=== PATIENT | female | born 1975 | race American Indian/Alaskan Native ===

== ENCOUNTER 2016-07-18 09:38 | Day surgery (SDC) | payer MEDICAID ==
[2016-07-17 11:41] LABS: Basophils % (Auto) 0.9 % (0.0-1.8); Eosinophils % (Auto) 0.2 % (0.0-4.3); Hematocrit 38.9 % (30.3-42.9); Hemoglobin 12.3 gm/dl (10.1-14.3); Mean Corpuscular HGB Conc 32 % (30-34); Mean Corpuscular Hemoglobin 24 pg (28-32); Mean Corpuscular Volume 76 fl (79-97); Platelet Count 290 K/mm3 (140-440); Red Cell Distribution Width 17.6 % (13.2-15.2); White Blood Count 3.3 K/mm3 (4.5-11.0)
[2016-07-17 11:54] LABS: Alanine Aminotransferase 30 units/L (7-56); Alkaline Phosphatase 93 units/L (35-129); Anion Gap 17 mmol/L; BUN/Creatinine Ratio 18.57; Bilirubin,Total 0.4 mg/dL (0.1-1.2); Blood Urea Nitrogen 13 mg/dL (7-17); Calcium 9.3 mg/dL (8.4-10.2); Carbon Dioxide 24 mmol/L (22-30); Chloride 102.1 mmol/L (98-107); Glucose 95 mg/dL (65-100); Potassium 4.3 mmol/L (3.6-5.0); Sodium 139 mmol/L (137-145); Total Protein 8.1 g/dL (6.3-8.2)
--- NOTE | 2016-07-17 12:01 | Anesthesia Consultation ---
Anesthesia Consult and Med Hx Date of service: 07/17/16 - Airway Anesthetic Teeth Evaluation: Good ROM Head & Neck: Adequate Mental/Hyoid Distance: Adequate Mallampati Class: Class II Intubation Access Assessment: Probably Good - Pre-Operative Health Status ASA Pre-Surgery Classification: ASA3 Proposed Anesthetic Plan: General - Pre-Anesthesia Comment Pre-Anesthesia Comments: HIV positive - Cardiovascular System Hx Hypertension: Yes (FOR 5 YRS) - Central Nervous System Hx Psychiatric Problems: No - Gastrointestinal Hx Gastroesophageal Reflux Disease: Yes - Other Systems Hx Cancer: No Hx Obesity: Yes
--- NOTE | 2016-07-18 06:32 | Admit Criteria Form ---
Admission Criteria Documentation: AMBULATORY SURGERY EXCEPTION CRITERIA Ambulatory Surgery Exception Criteria ( Place 'X' for any and all applicable criteria): Surgery or procedure performed on ambulatory basis may require inpatient stay for[A] ANY ONE of the following(1)(2)(3)(4)(5)(6)(7)(8)(9): [X] I. A preoperative situation, condition, or finding that warrants inpatient stay as indicated by ANY ONE of the following: [] a) Inpatient care needed because of severity of a disease or condition rather than the surgery (eg, severe cardiac or respiratory disease, severe infection) (15) (16 ) (17) (18) [] b) Emergent procedure (eg, angioplasty for acute ischemia)(19) [] c) Complex surgical approach or situation as indicated by ANY ONE of the following(3): [] i) Open approach needed instead of usual endoscopic, transcatheter, or other less invasive procedure [] ii) Difficult approach because of previous operation [] iii) Airway monitoring required after open neck procedures(20)(21) [] iv) Large mass requiring unusually extensive dissection [] v) Additional complicating feature requiring inpatient care (eg, drain management)(22(23): [X] d) Major surgery in a pt with high anesthetic risk as indicated by ANY ONE of the following (2)(3)(5)(7)(8): [X] i) ASA risk class III or higher (severe systemic disease impairing function) [D] [] ii) Advanced age (eg, older than 85 years)(14)(24) [] iii) Symptomatic heart failure(25) [] iv) Symptomatic asthma or COPD(8)(21) [] v) Morbid obesity with hemodynamic or respiratory problems(20)( 21)(26)(27) [] vi) Obstructive sleep apnea(20)(21) [] vii) Former premature infants who are younger than 60 weeks [] viii) High risk for severe postoperative abnormalities (eg, severe postoperative hypocalcemia after parathyroidectomy for severe hyperparathyroidism)(27)( 28) [] ix) Unstable angina(25) [] e) Drug-related risk requiring inpatient stay as indicated by ANY ONE of the following(5)(10)(14)(32)(33) [] i) Procedure requires discontinuing drugs or other therapy (eg , antiarrhythmic medication, antiseizure medication), which necessitates inpatient observation or treatment.(18)(31) [] ii) Major surgery and high risk drug use as indicated by ANY ONE of the following: [] 1) Active abuse of cocaine or similar drug [] 2) Monoamine oxidase inhibitor use [] 3) Other drug identified as posing risk [] f) Inadequate outpatient care situation as indicated by ANY ONE of the following(5)(10)(14)(32)(33) [] i) Patient lives remote from medical facility and procedure has urgent complication potential, and temporary nearby residence cannot be arranged [] ii) Patient will have postprocedure incapacitation and inadequate assistance at home, or alternative level of care cannot be arranged. [] iii) Patient will have long general anesthesia or procedure side effect resolution time, and competent person to stay with patient on first postoperative night at home or alternative level of care cannot be arranged. []iv) Other inadequate outpatient situation that cannot be handled by other means [] II. A perioperative event, condition, or finding that warrants inpatient stay as indicated by ANY ONE of the following (1)(2)(3): [] a) Inadequate physiologic recovery: cardiovascular, respiratory, or hemodynamic status not normal or near preoperative baseline(18) [] b) Hemodynamic instability [] c) Patient not alert with near normal or baseline mental status [] d) Temperature not normal or as expected and not appropriate for outpatient treatment of condition [] e) Ambulatory or appropriate activity level status not yet achieved post procedure [E](34)(35)(36) [] f) Operative site not appropriate (eg, unexpected or excessive drainage or bleeding) [] g) Postoperative effects not resolved or adequately managed (eg, significant pain or vomiting not appropriate for outpatient or next level of care)(10)(12) [] h) Complicating features requiring inpatient care as indicated by ANY ONE of the following(37): [] i) Severe complications of procedure (eg, bowel injury, airway compromise, vascular injury,severe hemorrhage) [] ii) Extensive (eg, dissection far beyond usual scope of procedure ) or prolonged (eg, 120 minutes beyond usual) surgery needed requiring inpatient postoperative care [] iii) Conversion to an open or complex procedure that requires inpatient care (eg, open vs laparoscopic cholecystectomy, abdominal vs vaginal hysterectomy)(38) [] iv) Comorbid condition or test result identified during or post procedure that requires inpatient care (7) [] v) Malignant hyperthermia(30) [] vi) Other complicating feature requiring inpatient care(22)(23) Inpatient stay may be needed until ALL of the following are present (1)(2)(3)(4) (5)(6)(10)(14)(33)(40): []a) Physiologic recovery: cardiovascular, respiratory, and hemodynamic status normal or near preoperative baseline []b) Hemodynamic stability []c) Patient alert, with near normal or baseline mental status []d) Temperature appropriate: patient afebrile or temperature appropriate for outpt treatment of condition []e) Activity level appropriate: ambulatory or appropriate activity level post procedure []f) Operative site appropriate as indicated by ALL of the following: []i) Site dry or with expected drainage []ii) Any blood noted is as expected for procedure. []g) Postoperative effects resolved or managed as indicated by ALL of the following: []i) Pain management appropriate for outpatient (or next level of) care(10) []ii) Minimal nausea and vomiting: if present, successfully treated with oral medication(12) []iii) Headache, dizziness, or drowsiness (if present) are mild. []h) Voiding status acceptable as indicated by ANY ONE of the following: []i) Voiding spontaneously []ii) No voiding but instructions given for follow-up in 6 to 8 hours []iii) Urinary catheter in place, and instructions given for follow-up []i) Complicating features requiring inpatient care manageable at a lower level of care(37) []j) Comorbid conditions manageable at a lower level of care(37) The original [employer] content created by [employer] has been revised. The portions of the content which have been revised are identified through the use of italic text or in bold, and [facility] has neither reviewed nor approved the modified material. All other unmodified content is copyright [employer]. Please see references footnoted in the original [employer] edition 2016 Admission Criteria Met: Yes
[~2016-07-18 09:38] MED LIST: LACTATED RINGERS 1,000 ML IV SCH; PEPCID PO NR; TRANSDERM-SCOP TD NR; VERSED IV NR; ZOFRAN IV PRN
[2016-07-18] MEDS ORDERED: DIPRIVAN 10 MG/ML IV ONE (10:13)
[2016-07-18] MEDS ORDERED: ZEMURON IV ONE (10:14)
[2016-07-18] MEDS ORDERED: XYLOCAINE MPF 2% ONE (10:14)
[2016-07-18] MEDS ORDERED: DILAUDID ONE (10:15)
[2016-07-18] MEDS ORDERED: ANCEF/STERILE WATER 2 GM/20 ML IV NR (10:40)
[2016-07-18] MEDS ORDERED: DECADRON ONE (11:40)
[2016-07-18] MEDS ORDERED: MARCAINE 0.5% INFILTRATI ONE ×2 (11:59)
[2016-07-18] MEDS ORDERED: NACL 0.9% IR ONE (11:59)
[2016-07-18] MEDS ORDERED: ePHEDrine SULFATE ONE (12:01)
[2016-07-18] MEDS ORDERED: BLOXIVERZ ONE (12:11)
[2016-07-18] MEDS ORDERED: ROBINUL ONE (12:11)
[2016-07-18] MEDS ORDERED: ZOFRAN ONE (12:13)
[2016-07-18] MEDS ORDERED: NORCO 5/325 PO PRN ×2 (12:39→12:40)
--- NOTE | 2016-07-18 12:39 | Discharge Summary ---
Short Stay Discharge Plan Activity: advance as tolerated Diet: low fat Wound: remove dressing
[2016-07-18] MEDS: DILAUDID IV PRN ×4 (12:40→13:15)
--- NOTE | 2016-07-18 13:42 | Post Anesthesia Evaluation ---
- Post Anesthesia Evaluation Patient Participated: Yes Airway Patent: Yes Stable Respiratory Function: Yes Nausea/Vomiting: No Temp > 96.8F: Yes Pain Manageable: Yes Adequeate Hydration: Yes Anesthesia Complications: No Block Receding Appropriately: Not Applicable Patient on Ventilator: No
--- NOTE | 2016-07-18 13:42 | Operative Report ---
PREOPERATIVE DIAGNOSIS: Gallbladder disease with stones. POSTOPERATIVE DIAGNOSES: Gallbladder disease with stones, with adhesions. There was one stone that I could feel in the infundibular area. It was about 1 x 1 cm. The cystic duct was small, barely about 2.5 mm. The cystic artery was about 1_ mm only. We were able to take the gallbladder out with the scope. ANESTHESIA: General. BLOOD LOSS: Minimal. FINDINGS: As above. DESCRIPTION OF PROCEDURE: With the patient in supine position, prepped and draped in usual fashion, I made a small incision in the right mid upper abdomen under local anesthesia using for that purpose 0.25% Marcaine and another one in the right mid lower abdomen. After that, 5 trocars inserted in that area and then a third one #5 in the infraumbilical aspect. With the camera, I was able to introduce a #10 in the mid upper epigastrium also under local anesthesia. Adhesions were encountered, these were lysed slowly using electrocautery in the usual fashion after grasping the fundus with a grasper, then the infundibulum as well. Then, we were able to go ahead and dissect the cystic duct and the cystic artery. These were isolated completely. We took pictures of these. Then, these were endoclipped x 4, transected, and then the gallbladder was removed in toto using electrocautery. We were very much satisfied, we had good hemostasis. The gallbladder was then removed via the EndoCatch. At that point, the wound was closed. I used for that purpose #0 Vicryl for the fascia, [id number] and 4-0 for the skin and bandage. The patient was then transferred to the recovery room in good condition. I talked to her in the recovery room. She was fully awake. JOB# [id number] MAXIMINO/SOLANGE MAHMOOD
--- NOTE | 2016-07-18 13:56 | Discharge Summary ---
FINAL DIAGNOSIS: Gallbladder disease with stones. HOSPITAL COURSE: This patient was seen in my office about 2 weeks ago because of pain in the right upper quadrant. She had a sonogram that showed evidence of stones in the gallbladder and the common bile duct was not dilated. So, she was admitted today as an outpatient to have cholecystectomy, this was done with the laparoscope. Postop, she did well. She is in the recovery room. Our plan to have her to go home this afternoon. I gave a prescription for Vicodin 325/5 to see me in office in about 10 days. JOB# [id number] MAXIMINO/SOLANGE
[2016-07-18 14:18] VITALS: BP 138/86
== END 2016-07-18 14:10 | disposition home or self-care (01) ==
LOC: OR 09:38
PROVIDERS: ATTEND Surgery
DX: K80.10 Calculus of gallbladder with chronic cholecystitis without obstruction (principal); K82.8 Other specified diseases of gallbladder; I10 Essential (primary) hypertension; E78.00 Pure hypercholesterolemia, unspecified; B19.20 Unspecified viral hepatitis C without hepatic coma; K21.9 Gastro-esophageal reflux disease without esophagitis; E66.9 Obesity, unspecified; Z68.39 Body mass index [BMI] 39.0-39.9, adult
CPT/HCPCS: 36415; 47562; 80053; 84703; 85025; 88304; J0690; J1100; J1170; J2250; J2405; J2704; J2710; J7120

== ENCOUNTER 2018-08-21 16:29 | Emergency (ER) | payer MEDICAID ==
[2018-08-21 17:04] VITALS: BP 157/97
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
[2018-08-21] MEDS ORDERED: AUGMENTIN 875 MG PO ONE (19:49)
[2018-08-21] MEDS ORDERED: ULTRAM PO ONE (19:49)
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
== END 2018-08-21 20:25 | disposition home or self-care (01) ==
LOC: ED 16:29
DX: K02.9 Dental caries, unspecified (principal); H65.02 Acute serous otitis media, left ear; J34.1 Cyst and mucocele of nose and nasal sinus; I10 Essential (primary) hypertension; K21.9 Gastro-esophageal reflux disease without esophagitis; Z90.49 Acquired absence of other specified parts of digestive tract; Z88.2 Allergy status to sulfonamides
CPT/HCPCS: 70486; 99283

== ENCOUNTER 2020-06-07 09:36 | Emergency (ER) | payer MEDICAID ==
[2020-06-07] MEDS ORDERED: ASPIRIN 325 MG TAB PO ONE (09:41)
--- NOTE | 2020-06-07 10:10 | XRay Report ---
CHEST 1 VIEW INDICATION: Chest Pain. COMPARISON: None FINDINGS: Support devices: None. Heart: Within normal limits. Lungs/Pleura: No acute air space or interstitial disease. Additional findings: None. IMPRESSION: No acute findings. Signer Name: Dharmesh Mcdonnell Jr, MD Signed: 06/07/2020 10:06 AM Workstation Name: [id number]
[2020-06-07 10:55] LABS: Mean Corpuscular HGB Conc 32 % (30-34); Red Blood Count 5.07 M/mm3 (3.65-5.03); Red Cell Distribution Width 16.7 % (13.2-15.2)
[2020-06-07 11:06] LABS: Blood Urea Nitrogen 11 mg/dL (7-17); Calcium 9.4 mg/dL (8.4-10.2); Hemolysis Index 6
[2020-06-07 11:08] LABS: BUN/Creatinine Ratio 16
[2020-06-07 11:17] LABS: Basophils % (Auto) 0.4 % (0.0-1.8); Eosinophils % (Auto) 0.9 % (0.0-4.3); Hematocrit 37.8 % (30.3-42.9); Hemoglobin 11.9 gm/dl (10.1-14.3); Lymphocytes # (Auto) 0.9 K/mm3 (1.2-5.4); Lymphocytes % (Auto) 19.6 % (13.4-35.0); Mean Corpuscular Volume 75 fl (79-97); Monocytes # (Auto) 0.5 K/mm3 (0.0-0.8); Monocytes % (Auto) 11.1 % (0.0-7.3); Platelet Count 280 K/mm3 (140-440)
--- NOTE | 2020-06-07 13:28 | Emergency Department Report ---
ED Chest Pain HPI - General Chief Complaint: Chest Pain Stated Complaint: CHEST PAIN/LFT SIDE TINGLE Time Seen by Provider: 06/07/20 13:09 Source: patient Mode of arrival: Ambulatory Limitations: No Limitations - History of Present Illness Initial Comments: This is a 44-year-old female who is a non-smoker with a history of HIV. She presents to the emergency department for evaluation of chest pain. She states that she has pressure under both her breasts which is nonpleuritic and nonexertional. She has had this occasionally for weeks and is nonpersistent. Last night she felt some tingling in both her fingertips. She also felt like she had a swelling in the left antecubital fossa medial side. She denied any shortness of breath, nausea, vomiting, fever or chills. She has no supplemental symptoms. MD Complaint: chest pain -: Gradual, minutes(s) Onset: during rest Pain Radiation: none Severity: mild Quality: heaviness Consistency: intermittent, now resolved Improves With: nothing Worsens With: nothing re: denies: nausea, vomting, diaphoresis Other Symptoms: denies: cough, fever, syncope Treatments Prior to Arrival: none - Related Data On Oral Contraceptives: No Home Medications Medication Instructions Recorded Confirmed Last Taken Darunavir/Cobicistat (Nf) 1 each PO QDAY 07/11/16 07/11/16 07/17/16 [Prezcobix 800 mg-150 mg Tablet] Emtricitabine/Tenofovir (Tdf) 1 each PO QDAY 07/11/16 07/11/16 07/17/16 [Truvada 133 mg-200 mg Tablet] hydroCHLOROthiazide [HCTZ] 25 mg PO QDAY 07/11/16 07/18/16 07/18/16 00:00 raNITIdine HCl [Zantac 150 MG TAB] 150 mg PO QDAY 07/11/16 07/18/16 07/18/16 05:00 Previous Rx's Medication Instructions Recorded Last Taken Type Amoxicillin/Potassium Clav 1 each PO BID 10 Days #20 tablet 08/21/18 Unknown Rx [Augmentin 875-125 Tablet] Chlorhexidine Mouthwash [Peridex] 15 ml MM BID #1 bottle 08/21/18 Unknown Rx traMADoL [Ultram 50 MG tab] 50 mg PO Q6HR PRN #12 tablet 06/07/20 Unknown Rx Allergies Allergy/AdvReac Type Severity Reaction Status Date / Time Sulfa (Sulfonamide Allergy Swelling, Verified 08/21/18 16:31 Antibiotics) RASH Heart Score - HEART Score History: Slightly suspicious EKG: Normal Age: < 45 Risk factors: No known risk factors Troponin: < normal limit HEART Score: 0 - Critical Actions Critical Actions: 0-3 pts:0.9-1.7%risk of adverse cardiac event.Candidate for discharge ED Review of Systems ROS: Stated complaint: CHEST PAIN/LFT SIDE TINGLE Other details as noted in HPI Constitutional: denies: chills, fever Eyes: denies: eye pain, eye discharge, vision change ENT: denies: ear pain, throat pain Respiratory: denies: cough, shortness of breath, wheezing Cardiovascular: chest pain. denies: palpitations Endocrine: no symptoms reported Gastrointestinal: denies: abdominal pain, nausea, diarrhea Genitourinary: denies: urgency, dysuria, discharge Musculoskeletal: denies: back pain, joint swelling, arthralgia Skin: denies: rash, lesions Neurological: paresthesias. denies: headache, weakness Psychiatric: denies: anxiety, depression Hematological/Lymphatic: denies: easy bleeding, easy bruising ED Past Medical Hx - Past Medical History Previous Medical History?: Yes Hx Hypertension: Yes Hx GERD: Yes Hx HIV: No - Surgical History Past Surgical History?: Yes Hx Cholecystectomy: Yes Additional Surgical History: ectopic - Social History Smoking Status: Never Smoker Substance Use Type: None - Medications Home Medications: Home Medications Medication Instructions Recorded Confirmed Last Taken Type Darunavir/Cobicistat (Nf) 1 each PO QDAY 07/11/16 07/11/16 07/17/16 History [Prezcobix 800 mg-150 mg Tablet] Emtricitabine/Tenofovir (Tdf) 1 each PO QDAY 07/11/16 07/11/16 07/17/16 History [Truvada 133 mg-200 mg Tablet] hydroCHLOROthiazide [HCTZ] 25 mg PO QDAY 07/11/16 07/18/16 07/18/16 00:00 History raNITIdine HCl [Zantac 150 MG TAB] 150 mg PO QDAY 07/11/16 07/18/16 07/18/16 05:00 History Amoxicillin/Potassium Clav 1 each PO BID 10 Days #20 tablet 08/21/18 Unknown Rx [Augmentin 875-125 Tablet] Chlorhexidine Mouthwash [Peridex] 15 ml MM BID #1 bottle 08/21/18 Unknown Rx traMADoL [Ultram 50 MG tab] 50 mg PO Q6HR PRN #12 tablet 06/07/20 Unknown Rx ED Physical Exam - General Limitations: No Limitations General appearance: alert, in no apparent distress - Head Head exam: Present: atraumatic, normocephalic - Eye Eye exam: Present: normal appearance - ENT ENT exam: Present: mucous membranes moist - Neck Neck exam: Present: normal inspection. Absent: meningismus - Respiratory Respiratory exam: Present: normal lung sounds bilaterally. Absent: respiratory distress - Cardiovascular Cardiovascular Exam: Present: regular rate, normal rhythm. Absent: systolic murmur, diastolic murmur, rubs, gallop - GI/Abdominal GI/Abdominal exam: Present: soft, normal bowel sounds. Absent: distended, tenderness, guarding, rebound - Extremities Exam Extremities exam: Present: other (Patient appears to have a small lipomatous collection in the left antecubital area, there is no cord. There is no circumferential swelling.) - Back Exam Back exam: Present: normal inspection - Neurological Exam Neurological exam: Present: alert, oriented X3, CN II-XII intact. Absent: motor sensory deficit - Psychiatric Psychiatric exam: Present: normal affect, normal mood - Skin Skin exam: Present: warm, dry, intact, normal color. Absent: rash MOY score - Moy Score Age > 65: (0) No Aspirin use within the Past 7 Days: (0) No 3 or more CAD Risk Factors: (0) No 2 or more Angina events in past 24 hrs: (0) No Known CAD with more than 50% Stenosis: (0) No Elevated Cardiac Markers: (0) No ST Deviation Greater than 0.5mm: (0) No MOY Score: 0 ED Medical Decision Making - Lab Data Result diagrams: 06/07/20 10:04 06/07/20 10:04 Laboratory Results - last 24 hr 06/07/20 06/07/20 10:04 10:04 WBC 4.4 L RBC 5.07 H Hgb 11.9 Hct 37.8 MCV 75 L MCH 24 L MCHC 32 RDW 16.7 H Plt Count 280 Lymph % (Auto) 19.6 Child[place] % (Auto) 11.1 H Eos % (Auto) 0.9 Baso % (Auto) 0.4 Lymph # (Auto) 0.9 L [place] # (Auto) 0.5 Eos # (Auto) 0.0 Baso # (Auto) 0.0 Seg Neutrophils % 68.0 Seg Neutrophils # 3.0 Sodium 135 L Potassium 3.9 Chloride 101.3 Carbon Dioxide 24 Anion Gap 14 BUN 11 Creatinine 0.7 Estimated GFR > 60 BUN/Creatinine Ratio 16 Glucose 100 Calcium 9.4 Troponin T < 0.010 - EKG Data -: EKG Interpreted by Me EKG shows normal: sinus rhythm, axis, intervals, QRS complexes, ST-T waves Rate: normal - EKG Data Interpretation: no acute changes Critical care attestation.: If time is entered above; I have spent that time in minutes in the direct care of this critically ill patient, excluding procedure time. ED Disposition Clinical Impression: Atypical chest pain Lipoma Qualifiers: Lipoma location: upper extremity Laterality: left Qualified Code(s): D17.22 - Benign lipomatous neoplasm of skin and subcutaneous tissue of left arm Disposition: DC-01 TO HOME OR SELFCARE Is pt being admited?: No Does the pt Need Aspirin: No Condition: Stable Instructions: Chest Pain (ED), Nonspecific Chest Pain, Adult Additional Instructions: Follow-up with your primary care physician. I am also going to give you the name of a engineer rf deployment. You may make an appointment. Return to the emergency department any acute change or problem. Prescriptions: traMADoL [Ultram 50 MG tab] 50 mg PO Q6HR PRN #12 tablet PRN Reason: Pain Referrals: KEVIN PARRA MD [Staff Physician] - 3-5 Days PRIMARY CARE, [Primary Care Provider] - 2-3 Days Time of Disposition: 13:30
== END 2020-06-07 13:48 | disposition home or self-care (01) ==
LOC: ED 09:36
DX: D17.9 Benign lipomatous neoplasm, unspecified (principal); R07.89 Other chest pain; I10 Essential (primary) hypertension; K21.9 Gastro-esophageal reflux disease without esophagitis; Z90.49 Acquired absence of other specified parts of digestive tract; Z98.890 Other specified postprocedural states; Z79.2 Long term (current) use of antibiotics; Z79.899 Other long term (current) drug therapy; Z88.2 Allergy status to sulfonamides
CPT/HCPCS: 36415; 71045; 80048; 84484; 85025; 93005

== ENCOUNTER 2022-02-23 08:55 | Emergency (ER) | payer MEDICAID ==
[2022-02-23 09:09] VITALS: BP 143/92
[2022-02-23] MEDS ORDERED: guaiFENesin/CODEINE 100-10MG ORAL LIQD 5 ML PO ONE (09:47)
[2022-02-23] MEDS ORDERED: ALBUTEROL 2.5 MG/3 ML NEBU IH ONE (09:51)
--- NOTE | 2022-02-23 10:45 | XRay Report ---
CHEST 2 VIEWS INDICATION / CLINICAL INFORMATION: sob. COMPARISON: None available. FINDINGS: SUPPORT DEVICES: None. HEART / MEDIASTINUM: No significant abnormality. LUNGS / PLEURA: No significant pulmonary or pleural abnormality. No pneumothorax. ADDITIONAL FINDINGS: No significant additional findings. IMPRESSION: 1. No acute findings. Signer Name: Mustapha Garcia MD Signed: 02/23/2022 10:41 AM Workstation Name: [id number]
--- NOTE | 2022-02-23 11:12 | Emergency Department Report ---
Minor Respiratory - HPI Chief Complaint: Upper Respiratory Infection Stated Complaint: COVID SYMPTOMS Time Seen by Provider: 02/23/22 09:47 Duration: 3 Days Pain Location: Chest Severity: mild Minor Respiratory: Yes Able to Tolerate Fluids, Yes Cough, Yes Sick Contacts, Yes Shortness of Breath, No Rhinorrhea, No Sore Throat, No Ear Pain, No Hemoptysis, No Chest Pain, No Fever Other History: 46 yo comes to ER with her family co for covid. Has had 2 immunizations and also had covid. cough. chills. wheezing. denies fever. no sputum. did not see pcp/ID. ambulatory to ER with normal vs ED Review of Systems ROS: Stated complaint: COVID SYMPTOMS Other details as noted in HPI Comment: All other systems reviewed and negative ED Past Medical Hx - Past Medical History Previous Medical History?: Yes Hx Hypertension: Yes Hx GERD: Yes Hx HIV: Yes - Surgical History Past Surgical History?: Yes Hx Cholecystectomy: Yes Additional Surgical History: ectopic - Social History Smoking Status: Never Smoker Substance Use Type: None - Medications Home Medications: Home Medications Medication Instructions Recorded Confirmed Last Taken Type Darunavir/Cobicistat (Nf) 1 each PO QDAY 07/11/16 07/11/16 07/17/16 History [Prezcobix 800 mg-150 mg Tablet] Emtricitabine/Tenofovir (Tdf) 1 each PO QDAY 07/11/16 07/11/16 07/17/16 History [Truvada 133 mg-200 mg Tablet] hydroCHLOROthiazide [HCTZ] 25 mg PO QDAY 07/11/16 07/18/16 07/18/16 00:00 History raNITIdine HCl [Zantac 150 MG TAB] 150 mg PO QDAY 07/11/16 07/18/16 07/18/16 05: 00 History Albuterol Mdi (or & Nicu Only) 2 puff IH QID PRN #1 inhalation 02/23/22 Unknown Rx [ProAir HFA Inhaler] Benzonatate [Tessalon Perles] 100 mg PO Q12H PRN #20 capsule 02/23/22 Unknown Rx Minor Respiratory Exam - Exam General: Vital signs noted. No distress. Alert and acting appropriately. HEENT: Yes Moist Mucous Membranes, No Pharyngeal Erythema, No Pharyngeal Exudates, No Rhinorrhea, No Conjuctival Injection, No Frontal Tenderness, No Maxillary Tenderness Ear: Neither TM Bulge, Neither TM Erythema, Neither EAC Pain, Neither EAC Discharge Neck: Yes Supple, No Adenopathy Lungs: Yes Good Air Exchange, Yes Wheezes, No Ronchi, No Stridor, No Cough, No Labored Respirations, No Retractions, No Use of Accessory Muscles, No Other Abnormal Lung Sounds Heart: Yes Regular, No Murmur Abdomen: Yes Normal Bowel Sounds, No Tenderness, No Peritoneal Signs Skin: No Rash, No Edema Neurologic: Alert and oriented, no deficits. Musculoskeletal: Unremarkable. ED Course Vital Signs 02/23/22 09:08 Temperature 98.2 F Pulse Rate 89 Respiratory 20 Rate Blood Pressure 143/92 [Right] O2 Sat by Pulse 99 Oximetry ED Medical Decision Making - Radiology Data Radiology results: report reviewed, image reviewed nap - Medical Decision Making Vital Signs 02/23/22 09:08 Temperature 98.2 F Pulse Rate 89 Respiratory 20 Rate Blood Pressure 143/92 [Right] O2 Sat by Pulse 99 Oximetry pt already on prednisone for her sarcoid given duoneb and cough med in er vs normal chest xray nap educate on uri care dc home with dc plan of care including diet, meds, activity and follow up. she verbalizes understanding of plan of care - Differential Diagnosis ro pna Critical care attestation.: If time is entered above; I have spent that time in minutes in the direct care of this critically ill patient, excluding procedure time. ED Disposition Clinical Impression: Viral URI Disposition: 01 HOME / SELF CARE / HOMELESS Is pt being admited?: No Does the pt Need Aspirin: No Condition: Stable Instructions: Viral Respiratory Infection, [id number] Additional Instructions: continue home meds follow up with ID MD next week to be sure you are getting better stay well hydrated with water motrin or tylenol for fever meds as ordered today until gone Prescriptions: Albuterol Mdi (or & Nicu Only) [ProAir HFA Inhaler] 2 puff IH QID PRN #1 inhalation PRN Reason: Shortness Of Breath Benzonatate [Tessalon Perles] 100 mg PO Q12H PRN #20 capsule PRN Reason: Cough Referrals: [facility],FAMILY [Other] - 3-5 Days Time of Disposition: 11:10
== END 2022-02-23 11:33 | disposition home or self-care (01) ==
LOC: ED 08:55
DX: J06.9 Acute upper respiratory infection, unspecified (principal); I10 Essential (primary) hypertension; K21.9 Gastro-esophageal reflux disease without esophagitis; Z20.2 Contact with and (suspected) exposure to infections with a predominantly sexual mode of transmission; Z90.49 Acquired absence of other specified parts of digestive tract
CPT/HCPCS: 71046; 94640; 99283